=== PATIENT | male | born 1970 | race Caucasian/White ===

== ENCOUNTER → 2016-10-17 | Outpatient (CLI) | payer BC ==
[~2016-10-17] MED LIST: APAP500; ASPIR 8181 MG PO; ASPIRIN325 PO; ATORVASTATIN CA40 MG PO; CARDIZEM CD240 MG PO; EFFIENT10 MG PO; NITROGLYCERIN0.4 MG SUBLING; NORCO 5-325 TA1 EACH PO; PLAVIX 75 MG TA75 M1 PO; TOPROL XL50 MG PO
== END ==
LOC: RAD 13:19
DX: R07.9 Chest pain, unspecified (principal)

== ENCOUNTER → 2017-05-08 | Outpatient (CLI) | payer BC | LOC: CAT 04-16 09:07 | DX: J84.9 Interstitial pulmonary disease, unspecified (principal); K76.0 Fatty (change of) liver, not elsewhere classified ==

== ENCOUNTER 2017-05-14 11:21 | Inpatient (IN) | payer BC ==
[~2017-05-14] VITALS: Ht 180.3 cm; Wt 97.1 kg
--- NOTE | ~2017-05-14 | EKG ---
[place] [address] [facility] [place] [address] ELECTROCARDIOGRAM REPORT Name: JEWEL AGUILERA Room #: 426-P ADM IN M.R.#: [id number] Admission: 05/14/17 Attend Phys: Bob Wadsworth DO Discharge: Date of : 68 Report #: [id number] THIS REPORT FOR: //name// [facility] ED Test Date: 2017-05-14 Test Time: 11:28:02 Pat Name: JEWEL AGUILERA Department: Room: 426 Gender: M Lead Installer: KATIE : 1970 Requested By: Genie Peterson Order Number: [id number] MD: Jr Valdovinos Measurements Intervals [place] Rate: 107 P: 61 GA: 127 QRS: 71 QRSD: 79 T: -20 QT: 308 QTc: 411 Interpretive Statements Sinus tachycardia Nonspecific ST and T wave abnormality Compared to ECG 10/25/2015 06:57:46 ST and T wave abnormality is new Electronically Signed On 05-15-2017 7:50:16 [employer] by Jr Valdovinos [email or web address] <ELECTRONICALLY SIGNED> By: Jr Valdovinos MD, [facility] 05/15/17 0750 [id number] Jr Valdovinos MD, [facility] /EPI
[2017-05-14 11:24] VITALS: BP 94/73
[2017-05-14 11:55] LABS: HEMATOCRIT 46.5 % (42.0-52.0); HEMOGLOBIN 16.4 gm/dL (14.0-18.0); MCH 31.1 pg (26.0-34.0); MCHC 35.2 g/dL (28.0-37.0); MCV 88.3 fL (80.0-100.0); PLATELET COUNT 150 thou/uL (150-400); RBC 5.27 mil/uL (4.50-6.00); WBC 12.8 thou/uL (4.0-11.0)
[2017-05-14 12:06] LABS: MANUAL DIFF YES
[2017-05-14 12:07] LABS: ANION GAP 10 mmol/L (7-16); BUN 20 mg/dL (7-18); CALCIUM 9.5 mg/dL (8.5-10.1); CHLORIDE 107 mmol/L (98-107); CO2 24 mmol/L (21-32); CREATININE 1.2 mg/dL (0.7-1.3); GLUCOSE 114 mg/dL (74-106); POTASSIUM 4.2 mmol/L (3.5-5.1); SODIUM 141 mmol/L (136-145)
[2017-05-14] MEDS ORDERED: NEXIUM40 MG PO (12:09)
[2017-05-14] MEDS ORDERED: ZETIA10 MG PO (12:09)
[2017-05-14 12:15] LABS: TROPONIN-I < 0.04 ng/mL (<0.06)
[2017-05-14 12:30] LABS: ABSOLUTE NEUTROPHILS 11.8 thou/uL (1.4-8.2); TOTAL CELL COUNT 100
[2017-05-14 12:43] LABS: URINE BILIRUBIN NEGATIVE (Negative); URINE BLOOD TRACE (Negative); URINE COLOR YELLOW; URINE GLUCOSE-RANDOM* NEGATIVE (Negative); URINE KETONES NEGATIVE (Negative); URINE LEUKOCYTES-REFLEX NEGATIVE (Negative); URINE PROTEIN (DIPSTICK) NEGATIVE (Negative); URINE UROBILINOGEN 0.2 E.U./dl (0.2-1.0)
[2017-05-14 13:44] LABS: AMP/METHAMP Negative (Negative); BARBITURATES Negative (Negative); BENZODIAZEPINES Negative (Negative); COCAINE Negative (Negative); METHADONE Negative (Negative); OPIATES Negative (Negative); PCP Negative (Negative)
[2017-05-14 13:58] VITALS: BP 138/82
[2017-05-14 14:10] VITALS: BP 122/85
[2017-05-14 14:25] VITALS: BP 141/82
[2017-05-14 15:33] LABS: ALBUMIN 4.6 g/dL (3.4-5.0); DIRECT BILIRUBIN 0.1 mg/dL (<0.1-0.3); TOTAL BILIRUBIN 0.8 mg/dL (<0.1-1.0); TOTAL PROTEIN 7.6 g/dL (6.4-8.2)
[2017-05-14 20:44] VITALS: BP 122/80
[2017-05-15 04:22] VITALS: BP 114/74
[2017-05-15 05:28] LABS: ABSOLUTE NEUTROPHILS 3.1 thou/uL (1.4-8.2); BASOPHILS 0.3 % (0.0-2.0); EOSINOPHILS 2.3 % (0.0-3.0); HEMATOCRIT 42.6 % (42.0-52.0); HEMOGLOBIN 14.6 gm/dL (14.0-18.0); LYMPHOCYTES 24.1 % (24.0-44.0); MCHC 34.3 g/dL (28.0-37.0); MCV 90.5 fL (80.0-100.0); MONOCYTES 11.1 % (1.0-8.0); PLATELET COUNT 122 thou/uL (150-400); POLYS 62.2 % (36.0-66.0); RBC 4.71 mil/uL (4.50-6.00); RDW 12.3 % (10.5-14.5)
[2017-05-15 05:30] LABS: MANUAL DIFF NO
[2017-05-15 06:23] LABS: ANION GAP 7 mmol/L (7-16); BUN 13 mg/dL (7-18); CALCIUM 8.5 mg/dL (8.5-10.1); CHLORIDE 107 mmol/L (98-107); CHOLESTEROL 162 mg/dL (<200); CO2 26 mmol/L (21-32); CREATININE 0.9 mg/dL (0.7-1.3); GLUCOSE 97 mg/dL (74-106); HDL CHOLESTEROL < 5 mg/dL (>40); MAGNESIUM 1.7 mg/dL (1.8-2.4); POTASSIUM 3.4 mmol/L (3.5-5.1); SODIUM 140 mmol/L (136-145); TRIGLYCERIDE 148 mg/dL (<150); VLDL 30 mg/dL (<40)
[2017-05-15 06:25] LABS: SERUM ASSESSMENT Clear
[2017-05-15 08:00] VITALS: BP 94/57
[2017-05-15 15:51] VITALS: BP 104/75
[2017-05-15 20:05] VITALS: BP 112/70
[2017-05-16 03:45] VITALS: BP 114/79
[2017-05-16 06:47] LABS: HEMATOCRIT 39.5 % (42.0-52.0); HEMOGLOBIN 13.7 gm/dL (14.0-18.0); MCH 31.3 pg (26.0-34.0); MCHC 34.8 g/dL (28.0-37.0); MCV 89.8 fL (80.0-100.0); PLATELET COUNT 121 thou/uL (150-400); RBC 4.39 mil/uL (4.50-6.00); RDW 12.3 % (10.5-14.5); WBC 4.5 thou/uL (4.0-11.0)
[2017-05-16 06:49] LABS: MANUAL DIFF YES
[2017-05-16 07:05] LABS: CALCIUM 8.6 mg/dL (8.5-10.1); CREATININE 0.8 mg/dL (0.7-1.3); POTASSIUM 3.8 mmol/L (3.5-5.1)
[2017-05-16 08:30] VITALS: BP 117/80
[2017-05-16 08:35] LABS: ABSOLUTE NEUTROPHILS 1.7 thou/uL (1.4-8.2); TOTAL CELL COUNT 100
[2017-05-16 08:36] LABS: ANISOCYTOSIS SLIGHT
[2017-05-16] MEDS ORDERED: ZOFRAN4 MG PO (11:23)
[2017-05-16 12:54] VITALS: BP 117/80
== END 2017-05-16 14:00 | disposition home or self-care (01) | DRG 391 ==
LOC: ER 11:21 → 4E 13:22 → EROBS 13:22 → 4E 14:45
PROVIDERS: Emergency Medicine; Family Medicine; Nurse Practitioner
DX: K52.9 Noninfective gastroenteritis and colitis, unspecified (principal); N17.0 Acute kidney failure with tubular necrosis; I25.10 Atherosclerotic heart disease of native coronary artery without angina pectoris; E78.5 Hyperlipidemia, unspecified; I10 Essential (primary) hypertension; K76.0 Fatty (change of) liver, not elsewhere classified; J06.9 Acute upper respiratory infection, unspecified; N28.89 Other specified disorders of kidney and ureter; Z87.442 Personal history of urinary calculi; Z90.49 Acquired absence of other specified parts of digestive tract; Z95.5 Presence of coronary angioplasty implant and graft; Z91.041 Radiographic dye allergy status
CPT/HCPCS: 10183

== ENCOUNTER → 2017-08-20 | Outpatient (CLI) | payer BC ==
[~2017-08-20] MED LIST changes: +NEXIUM40 MG PO; +ZETIA10 MG PO; +ZOFRAN4 MG PO
== END ==
LOC: RAD 08-19 10:40
DX: K44.9 Diaphragmatic hernia without obstruction or gangrene (principal)

== ENCOUNTER → 2017-10-01 | Outpatient (CLI) | payer BC | LOC: RAD 09-30 11:31 | DX: K21.9 Gastro-esophageal reflux disease without esophagitis (principal); K44.9 Diaphragmatic hernia without obstruction or gangrene; R07.9 Chest pain, unspecified ==

== ENCOUNTER → 2018-03-25 | Outpatient (CLI) | payer BC | LOC: RAD 16:13 | DX: R07.1 Chest pain on breathing (principal); R05 Cough ==

== ENCOUNTER → 2020-03-22 | Outpatient (CLI) | payer BC ==
[~2020-03-22] MED LIST changes: +ASA81BEC PO
== END ==
LOC: SJCVCIMAG 08:11
PROVIDERS: ATTEND Internal Medicine Cardiovascular Disease
DX: I25.10 Atherosclerotic heart disease of native coronary artery without angina pectoris (principal); I10 Essential (primary) hypertension

== ENCOUNTER → 2021-03-23 | Outpatient (CLI) | payer BC | LOC: SJCVCIMAG 07:22 | PROVIDERS: ATTEND Internal Medicine Cardiovascular Disease | DX: I25.10 Atherosclerotic heart disease of native coronary artery without angina pectoris (principal); R60.9 Edema, unspecified; I10 Essential (primary) hypertension; E78.00 Pure hypercholesterolemia, unspecified; Z79.82 Long term (current) use of aspirin; Z79.899 Other long term (current) drug therapy; Z98.890 Other specified postprocedural states; Z72.0 Tobacco use; Z88.8 Allergy status to other drugs, medicaments and biological substances ==